=== PATIENT | female | born 1980 | race Caucasian/White ===

== ENCOUNTER 2016-07-15 03:16 | Day surgery (SDC) | payer BC ==
--- NOTE | 2016-07-15 07:07 | ER ---
ADMIT: 07/15/2016 RM/LOC: W.11 [facility] MR#: [id number] [address] [address] ANNA SIMMONS [address] [place] [address] Emergency Room Report SEX: F AGE: 36 : 1980 DATE: 07/15/2016 CHIEF COMPLAINT: Abdominal pain. HISTORY OF PRESENT ILLNESS: The patient is a 36-year-old female complaining of acute onset of right upper quadrant periumbilical abdominal pain, associated with nausea and gagging. No diarrhea or urinary symptoms. Denies any fevers or chills. PAST MEDICAL HISTORY: ILLNESSES: Genital herpes. Previous urinary infection. OPERATIONS: . ALLERGIES: MACROBID. MEDICATIONS: None. SOCIAL HISTORY: , nonsmoker, nondrinker, no illicit drugs. FAMILY HISTORY: Negative for anesthetic reactions. REVIEW OF SYSTEMS: A 12-point review of systems negative for all other systems, illnesses, or operations except as outlined above. PHYSICAL EXAMINATION: VITAL SIGNS: Temp 98.9, pulse 68, respirations 18, BP 159/105, SaO2 of 96%, weight 77 kilos. GENERAL: Anxious, moderate distress, nontoxic, nondiaphoretic, without jaundice or icterus. HEENT: Normocephalic. No evidence of epistaxis, rhinorrhea, or otorrhea. NECK: Supple without lymphadenopathy or thyromegaly. CHEST: Clear. Breath sounds equal. HEART: Regular rate and rhythm without murmur, gallop, or edema. ABDOMEN: Soft, tender periumbilical and right lower quadrant without mass or megaly. Bowel sounds hypoactive. BACK: No CVA tenderness. EXTREMITIES: No evidence of Homans sign, synovitis, or dermatitis. NEURO: EOMI. PERRLA. No evidence of drift, dysarthria, or ataxia. Gait normal. MEDICAL DECISION MAKING: WBC 15.1, CRP 0.56, lactic 1.9, glucose 129, lipase 102. HCG negative. Urine; 3 WBCs, 21 RBCs, 2+ leukocyte esterase. CT abdomen and pelvis confirms appendicitis and left ovarian cyst. The patient was given a liter of fluid, Zofran, Toradol, Dilaudid with marked improvement. ADMIT: 07/15/2016 RM/LOC: W.11 [facility] MR#: [id number] [address] [address] [place] [address] Emergency Room Report SEX: F AGE: 36 : 1980 Made n[address]o. Notified Dr. Maria, who agreed and recommended a transfer to short-stay. Notified warehouse handler, who agreed. DIAGNOSES: 1. Acute appendicitis. 2. Left ovarian cyst. RECOMMENDATION: Admit short-stay for emergent appendectomy. Romain Bynum MD/ benjamin JOB #: [id number] CC: Huan Maria MD, Attending Physician Huan Maria MD, Family Physician MD Morales Delong MD
--- NOTE | 2016-07-22 11:26 | OR ---
ADMIT: 07/15/2016 RM/LOC: W.11 [facility] MR#: [id number] [address] [address] ANNA SIMMONS [address] [place] [address] Operative/Delivery Room Report SEX: F AGE: 36 : 1980 SURGERY DATE: 07/15/2016 SURGEON: Moy Cook MD PREOPERATIVE DIAGNOSIS: Acute appendicitis. POSTOPERATIVE DIAGNOSIS: Acute nonperforated appendicitis. PROCEDURE PERFORMED: Laparoscopic appendectomy. ANESTHESIA: General endotracheal with addition of Marcaine in the wounds postprocedure. ESTIMATED BLOOD LOSS: Less than 10 mL. DESCRIPTION OF PROCEDURE: After appropriate informed consent was obtained, the patient was brought to the operating room. General endotracheal anesthesia was induced. The patient's abdomen was prepped and draped in a sterile fashion. The small infraumbilical incision was created. Veress needle was introduced. The abdomen was insufflated with CO2. A 5 mm trocar was placed. Camera was introduced and the abdomen surveyed. She had no intraabdominal adhesions. Two additional ports were placed. The appendix was identified, obviously appeared inflamed, there was no obvious perforation, no pus or fluid around it. A small window was made through appendiceal mesentery at the base of the appendix. Endo-DRAGAN stapler with 3.5 mm staple was placed across the base of the appendix and fired. An additional load of Endo-DRAGAN stapler 2.5 mm staple was placed across the appendiceal mesentery and fired. With the appendix freed up, it was placed in EndoCatch bag and brought out through the left lower quadrant port site. The port was re-introduced. The right lower quadrant was irrigated and suctioned out. The staple lines appeared hemostatic. All the wounds were infiltrated with Marcaine. Left lower quadrant fascial defect was closed with [id number] 0 Vicryl suture. The abdomen was next desufflated, ports were removed, and skin closed with 4-0 Monocryl in the subcuticular layer. Dermabond was then applied over the wounds. The patient tolerated the procedure well and was taken to the recovery room in stable condition. Moy Cook MD/ ebnjamin JOB #: [id number] CC: Huan Maria, Attending Physician Huan Maria, Family Physician
--- NOTE | 2016-08-18 08:51 | HP ---
ADMIT: 07/15/2016 RM/LOC: W.11 [facility] MR#: [id number] [address] [place] [id number] ANNA SIMMONS [address] [place] [address] Pre-OP History and Physical SEX: F AGE: 36 : 1980 DATE OF SERVICE: 07/15/2016 HISTORY OF PRESENT ILLNESS: The patient is a 36-year-old female, who presents with about 24 hours of abdominal pain, which has started in mid-abdomen. She has had some nausea, decreased appetite, and pain which become more severe and localized to the right lower quadrant. She denies having this pain prior in the past. Does admit to some issues with diarrhea, and I believe, alternating with constipation. Denies any blood in her stools. PAST SURGICAL HISTORY: Includes 2 C sections. She has a son 15 and 12 years of age. PAST MEDICAL HISTORY: Includes she has an active herpes infection. MEDICATIONS: Include, probably, I think, amantadine for this. SOCIAL HISTORY: She is a nondrinker, nonsmoker. FAMILY HISTORY: Noncontributory. ALLERGIES: SHE HAS ALLERGIES TO MACROBID. REVIEW OF SYSTEMS: Denies headaches, chest pain, or shortness of breath. She has had nausea, vomiting, and right lower abdominal pain per HPI. She has no extremity complaints, hematologic, neurologic, or psychiatric issues. PHYSICAL EXAMINATION: VITAL SIGNS: She has a low-grade temp. HEART: Regular. LUNGS: Clear. ABDOMEN: Soft, nondistended, and tender to palpation in the right lower ADMIT: 07/15/2016 RM/LOC: W.11 [facility] MR#: [id number] [address] [address] ANNA SIMMONS [address] [place] [address] Pre-OP History and Physical SEX: F AGE: 36 : 1980 quadrant. EXTREMITIES: She had no peripheral edema. NEUROLOGICAL: No focal neurologic deficits. ASSESSMENT AND PLAN: The patient is a 36-year-old, with right lower quadrant abdominal pain with leukocytosis and CT scan evidence of Appendicitis. PLAN: Laparoscopic versus open appendectomy. The risks and benefits, were discussed with the patient, she wished to proceed. I did discuss that myself or one of my partners would be doing the procedure for her and she understands. Huan Maria MD/ benjamin JOB #: [id number] CC: Huan Maria, Attending Physician Huan Maria, Family Physician
== END 2016-07-15 13:40 | disposition home or self-care (01) ==
LOC: ER 03:16 → WOR 06:25 → SSS 06:25 → ER 06:25 → WOR 06:25 → SSS 13:40
PROC: 0DTJ4ZZ Resection of Appendix, Percutaneous Endoscopic Approach (ICD-10-PCS; principal; 2016-07-15)
DX: K35.80 Unspecified acute appendicitis (principal); Z98.890 Other specified postprocedural states; Z88.8 Allergy status to other drugs, medicaments and biological substances; Z79.899 Other long term (current) drug therapy